=== PATIENT | male | born 1950 | race Caucasian/White ===

== ENCOUNTER 2019-03-15 08:55 | Day surgery (SDC) | payer OTHER ==
--- NOTE | 2019-03-10 13:09 | RAD REPORT ---
EXAM DESCRIPTION: RAD - Chest Pa And Lat (2 Views) - 03/10/2019 1:02 pm CLINICAL HISTORY: Preop chest, history of squamous cell carcinoma, patient pending surgical proce dure COMPARISON: None. TECHNIQUE: PA and lateral views of the chest were obtained. FINDINGS: The lungs are fibrotic. Diaphragm is flattened. No acute infiltrates seen. No failure or v olume overload. Heart size is normal and central vasculature is within normal limits. No pleural e ffusion or pneumothorax seen. No acute bony finding noted. No aortic abnormality. IMPRESSION: Fibrotic and obstructive lung pattern with no acute cardiopulmonary finding seen.
[2019-03-10 13:35] LABS: Urine Appearance CLOUDY; Urine Bilirubin NEGATIVE (NEG); Urine Blood NEGATIVE (NEG); Urine Color YELLOW; Urine Glucose NEGATIVE (NEG); Urine Protein NEGATIVE (NEG); Urine Specific Gravity 1.015 (1.005-1.030); Urine Urobilinogen 0.2 mg/dL (0.2-1.0); Urine pH 7.5 (5.0-7.0)
[2019-03-10 13:40] LABS: Protime INR 1.31
[2019-03-10 13:46] LABS: BUN Blood Urea Nitrogen 27 mg/dL (7-18); Bicarbonate 35 mmol/L (21-32); Glucose Level 98 mg/dL (74-106); Potassium 4.4 mmol/L (3.5-5.1); Sodium Level 140 mmol/L (136-145)
[2019-03-10 13:54] LABS: Urine Microscopic Reflex ORDER UMIC
[2019-03-10 13:56] LABS: Urine RBC NONE SEEN /HPF (NONE SEEN)
[2019-03-10 13:57] LABS: Absolute Lymphocytes (CBC) 0.5 K/uL (0.7-4.9); Absolute Monocytes 0.5 K/uL (0.1-1.3); Absolute Neutrophil 3.9 K/uL (1.8-8.0); Basophils % 0.7 % (0-1.3); Eosinophils % 1.8 % (0-4.4); Hematocrit 44.2 % (39.6-49.0); Lymphocytes % 9.4 % (15.3-44.8); MPV 9.4 fL (7.6-11.3); Monocytes % 10.2 % (3.3-12.3); RBC Red Blood Cell Count 4.93 M/uL (4.33-5.43)
[2019-03-10 13:57] LABS: Urine Amorphous Sediment 2+ /HPF (NONE SEEN); Urine Bacteria 20-50 /HPF (NONE SEEN); Urine Culture Reflex Order NOT NEEDED; Urine Yeast MANY (NONE SEEN)
--- NOTE | 2019-03-10 16:30 | EKG ---
Test Date: 2019-03-10 Test Time: 13:04:43 Force Adjustment Supervisor: GERALD MEASUREMENT RESULTS: Intervals: Rate: 70 AK: 266 QRSD: 124 QT: 418 QTc: 451 [place]: P: 36 AK: 266 QRS: -52 T: 37 INTERPRETIVE STATEMENTS: Sinus rhythm with 1st degree AV block Right bundle branch block Left anterior fascicular block Bifascicular block Abnormal ECG No previous ECG available for comparison Electronically Signed On 03-10-19 16:29:12 CDT by Mode Clarke
[2019-03-15] MEDS ORDERED: NA CHLORIDE 0.9% 1,000 ML ONE (09:14)
[2019-03-15] MEDS ORDERED: GENTAMICIN 80 MG/100 ML BAG 80 MG/100 ML BAG IV ONE (09:14)
--- OUTSIDE RECORDS SUMMARY | 2019-03-15 09:14 | XMS REPORT | Clinical Summary ---
:1950 Author Organization [facility] Address [address] [place] [address] Care Team Providers Name Role Phone Unavailable Primary Care Provider Unavailable Allergies No Known Allergies Medications Medication Sig Dispensed Refills Start Date End Date Status tamsulosin (FLOMAX) Take 0.4 mg by 0 Active 0.4 mg Cap 24 hr mouth every 12 capsule (twelve) hours. pantoprazole Take 20 mg by 0 Active (PROTONIX) 20 MG mouth daily. tablet sucralfate (CARAFATE) Take 500 mg by 0 Active 100 mg/mL suspension mouth nightly. atorvastatin (LIPITOR) Take 20 mg by 0 Active 20 MG tablet mouth nightly. aspirin 81 MG chewable Take 1 tablet 30 tablet 0 03/02/2019 Active tablet (81 mg total) by mouth daily. amoxicillin-clavulanat Take 1 tablet 14 tablet 0 03/01/2019 03/08/2019 e (AUGMENTIN) 875-125 by mouth 2 mg per tablet (two) times daily for 7 days. Active Problems Problem Noted Date Fever 02/27/2019 SOB (shortness of breath) 02/27/[address] on admission 02/27/2019 History of placement of stent in LAD coronary artery 02/27/1995 BPH (benign prostatic hyperplasia) CAD (coronary artery disease) Resolved Problems Problem Noted Date Resolved Date Other type of acute myocardial infarction 02/27/2019 02/27/2019 Encounters Date Type Specialty Care Team Description 02/27/2019 - Hospital Encounter Cardiology Jean-Claude Reeves Other type of acute myocardial infarction (HCC) (Primary Dx); 03/01/2019 MD Liban Fever in other diseases Addy Jessica MD 02/27/2019 Surgery Mark Bell L CATH & PCI 02/27/2019 Travel 02/27/2019 Hospital Encounter Mark Bell MD after 03/14/2018 Social History Tobacco Use Types Packs/Day Years Used Date Never Smoker Smokeless Tobacco: Never Used Sex Assigned at Date Recorded Not on file Job Start Date Occupation Industry Not on file Not on file Not on file Travel History Travel Start Travel End No recent travel history available. Last Filed Vital Signs Vital Sign Reading Time Taken Blood Pressure 94/51 03/01/2019 7:05 AM CDT Pulse 67 03/01/2019 9:56 AM CDT Temperature 36.3 C (97.4 F) 03/01/2019 7:05 AM CDT Respiratory Rate 18 03/01/2019 9:56 AM CDT Oxygen Saturation 96% 03/01/2019 9:56 AM CDT Inhaled Oxygen Concentration - - Weight 70 kg (154 lb 4.8 oz) 03/01/2019 6:07 AM CDT Height 180.3 cm (5' 11") 02/27/2019 6:22 PM CDT Body Mass Index 21.52 03/01/2019 6:07 AM CDT Plan of Treatment Not on file Procedures Procedure Name Priority Date/Time Associated Comments Diagnosis VASCULAR DIAGRAM -SCAN 03/03/2019 4:22 PM CDT REPORT OF PROCEDURE - 03/02/2019 12:42 ENDOSCOPY SCAN PM CDT CARDIAC CATH REPORT - 03/02/2019 12:42 SCAN PM CDT RHYTHM STRIP - SCAN 03/02/2019 12:42 PM CDT VASCULAR DIAGRAM -SCAN 03/02/2019 12:41 PM CDT ECHOCARDIOGRAM REPORT - 02/28/2019 9:13 SCAN PM CDT POCT-GLUCOSE METER Routine 02/28/2019 12:12 Results for this PM CDT procedure are in the results section. 2D ECHO W/ DOPPLER Routine 02/28/2019 11:00 Results for this (CW/PW/COLOR) AM CDT procedure are in the results section. SPUTUM CULTURE + GRAM Routine 02/28/2019 9:10 Results for this STAIN AM CDT procedure are in the results section. RESPIRATORY PANEL [facility] Routine 02/28/2019 9:10 Results for this AM CDT procedure are in the results section. CBC W/PLT COUNT & AUTO Routine 02/28/2019 4:13 Results for this DIFFERENTIAL AM CDT procedure are in the results section. TROPONIN I Routine 02/28/2019 4:13 Results for this AM CDT procedure are in the results section. B-TYPE NATRIURETIC Routine 02/28/2019 4:13 Results for this FACTOR (BNP) AM CDT procedure are in the results section. TSH/FREE T4 IF Routine 02/28/2019 4:13 Results for this INDICATED AM CDT procedure are in the results section. HEMOGLOBIN A1C Routine 02/28/2019 4:13 Results for this AM CDT procedure are in the results section. LIPID PANEL Routine 02/28/2019 4:13 Results for this AM CDT procedure are in the results section. MAGNESIUM Routine 02/28/2019 4:13 Results for this AM CDT procedure are in the results section. BASIC METABOLIC PANEL Routine 02/28/2019 4:13 Results for this (7) AM CDT procedure are in the results section. CBC W/PLT COUNT & AUTO Routine 02/28/2019 4:13 Results for this DIFFERENTIAL AM CDT procedure are in the results section. URINALYSIS W/ REFLEX Routine 02/27/2019 10:00 Results for this URINE CULTURE PM CDT procedure are in the results section. URINE CULTURE Routine 02/27/2019 10:00 Results for this PM CDT procedure are in the results section. XR CHEST 1 VIEW STAT 02/27/2019 7:28 Results for this PORTABLE/BEDSIDE PM CDT procedure are in the results section. CBC W/PLT COUNT & AUTO STAT 02/27/2019 5:11 Results for this DIFFERENTIAL PM CDT procedure are in the results section. TROPONIN I STAT 02/27/2019 5:11 Results for this PM CDT procedure are in the results section. PROTHROMBIN TIME/INR STAT 02/27/2019 5:11 Results for this PM CDT procedure are in the results section. CBC W/PLT COUNT & AUTO STAT 02/27/2019 5:11 Results for this DIFFERENTIAL PM CDT procedure are in the results section. BASIC METABOLIC PANEL STAT 02/27/2019 5:11 Results for this (7) PM CDT procedure are in the results section. (CELLAVISION MANUAL Routine 02/27/2019 5:11 Results for this DIFF) PM CDT procedure are in the results section. L CATH & PCI 02/27/2019 4:00 Chest pain, PM CDT unspecified type after 03/14/2018 Results VASCULAR DIAGRAM -SCAN (03/03/2019 4:22 PM CDT)Only the most recent of2 resultswithin the time period is included. Narrative Performed At EKG-SCANNED (03/02/2019 12:42 PM CDT) Narrative Performed At CARDIAC CATH REPORT - SCAN (03/02/2019 12:42 PM CDT) Narrative Performed At RHYTHM STRIP - SCAN (03/02/2019 12:42 PM CDT) Narrative Performed At ECHOCARDIOGRAM REPORT - SCAN (02/28/2019 9:13 PM CDT) Narrative Performed At POC-Glucose meter (02/28/2019 12:12 PM CDT) POC-Glucose Meter 105Comment: TESTED AT 70 - 110 mg/dL [address] [address] Specimen Blood Performing Organization Address City/State/Zipcode Phone Number [address] [phone] CENTER Transthoracic 2D echo w/ doppler (cw/pw/color) (02/28/2019 11:00 AM CDT) Ejection Fraction [facility] [employer] TechnologyON [facility] Specimen Narrative Performed At Transthoracic Echocardiography Report (TTE) [facility]ART[facility] InCab DesignESSON [facility] Demographics Patient Name SAQIB BOLTON Date of Study 02/28/2019 [id number] GenderMale Visit Number [id number] Unknown [id number] Room Number 6101 Number Date of Birth1950Referring Physician Age68 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 Clinical History Coronary Artery Disease Cancer S/P LAD Stent HGB 12.3 HCT 37.8 % Contrast Medium: Definity. Amount - 2 ml Height: 71 inches Weight: 72.12 kg (159 lbs) BSA: 1.91 m^2 BMI: 22.18 kg/m^2 HR: 68 bpm BP: 90/58 mmHg Summary The LV endocardium is well visualized. The left ventricle is chamber size (by PSLAX dimension) is normal (male - LVIDd 4.2-5.8cm) . No evidence of LV hypertrophy. All of the LV segments contract normally . LVEF by John's method of disk assessment is normal (60%) . Normal diastolic function. Estimated peak systolic PA pressure is cannot be determined due to inadequate TR velocity signal . A trivial pericardial effusion is present anterior to RV . Previous Study No prior studies available for comparison. Signature Findings Left Ventricle The LV endocardium is well visualized. Th e left ventricle is chamber size (by PSLAX di mension) is normal (male - LVIDd 4.2-5.8cm) . No evidence of LV hypertrophy. Al l of the LV segments contract normally . LV EF by John's method of disk assessment is no rmal (60%) . No rmal diastolic function. Left AtriumLA size is normal (16-34 ml/m2) . Right VentricleThe right ventricular chamber size and systolic fu nction are within normal limits. Right Atrium RA size is normal. Aortic Valve Normal AoV structure. No evidence of aortic regurgitation. Mitral Valve Mild MV leaflet thickening. No significant mitral regurgitation. Tricuspid ValveA trace of tricuspid regurgitation. Es timated peak systolic PA pressure is cannot be de termined due to inadequate TR velocity signal . Pulmonic Valve Normal PV structure and function by limited views an d Doppler. AortaAortic root size (SInus of Valsalva diameter) is no rmal . PericardiumA trivial pericardial effusion is present anterior to RV . IVC/SVC/PA/PV/PleuralThe estimated RA pressure by IVC dynamics 5-10mmHg . Chambers/Structures Left Atrium LA Volume: 58.62 ml LA Area: 21.31 cm^2 LA Vol. Index: 31 ml/m^2 Left Ventricle LVIDd: 4.55 cm LVIDs: 2.38 cm LV Septum Diastolic: 0.78 cm LV PW Diastolic: 0.92 cmLV FS: 47.7 % LVEDV John's:125.78 ml LVESV John's:53.83 mlLVEDVI: 66 ml/m^2 LVEF John's: 57.2 %LVESV I: 28 ml/m^2 LVOT Diameter: 1.96 cm Right Atrium RA Vol. (Sngl Plane): 44.25 ml Aorta Ao Root S of Rebecca.: 3.19 cm Doppler/Quantitative Measurements Mitral Valve MV Peak E-Wave: 0.55 m/sMV Peak A-Wave: 0.49 m/s E/A Ratio: 1.14 Peak Gradient: 1.22 mmHg Deceleration Time: 240.3 msec MV Jose. Peak: Tissue Doppler E' Lateral Velocity: 0.09 m/s E/E': 6.19 Aortic Valve Peak Velocity: 1.27 m/sMean Velocity: 0.96 m/s Peak Gradient: 6.42 mmHg Mean Gradient: 3.97 mmHg AV Area (continuity): 2.14 cm^2 AV VTI: 29.01 cm AV DVI: 0.71 LVOT Peak Velocity: 0.99 m/s Peak Gradient: 3.96 mmHg Mean Velocity: 0.71 m/s Mean Gradient: 2.2 mmHg LVOT Diameter: 1.96 cmLVOT VTI: 20.61 cm LVOT Area: 3.02 cm^2LVOT SV:62.15 ml LVOT CO: 4.23 l/min LVOT CI: 2.21 l/min/m^2 Procedure Note Interface, External Ris In - 02/28/2019 4:00 PM CDT Transthoracic Echocardiography Report (TTE) Demographics Patient Name SAQIB BOLTON Date of Study 02/28/2019 Gender Male Visit Number [id number] Race Unknown Room Number 6101 Number Date of 1950 Referring Physician Age 68 year(s) 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 Clinical History Coronary Artery Disease Cancer S/P LAD Stent HGB 12.3 HCT 37.8 % Contrast Medium: Definity. Amount - 2 ml Height: 71 inches Weight: 72.12 kg (159 lbs) BSA: 1.91 m^2 BMI: 22.18 kg/m^2 HR: 68 bpm BP: 90/58 mmHg Summary The LV endocardium is well visualized. The left ventricle is chamber size (by PSLAX dimension) is normal (male - LVIDd 4.2-5.8cm) . No evidence of LV hypertrophy. All of the LV segments contract normally . LVEF by John's method of disk assessment is normal (60%) . Normal diastolic function. Estimated peak systolic PA pressure is cannot be determined due to inadequate TR velocity signal . A trivial pericardial effusion is present anterior to RV . Previous Study No prior studies available for comparison. Signature Findings Left Ventricle The LV endocardium is well visualized. The left ventricle is chamber size (by PSLAX dimension) is normal (male - LVIDd 4.2-5.8cm) . No evidence of LV hypertrophy. All of the LV segments contract normally . LVEF by John's method of disk assessment is normal (60%) . Normal diastolic function. Left Atrium LA size is normal (16-34 ml/m2) . Right Ventricle The right ventricular chamber size and systolic function are within normal limits. Right Atrium RA size is normal. Aortic Valve Normal AoV structure. No evidence of aortic regurgitation. Mitral Valve Mild MV leaflet thickening. No significant mitral regurgitation. Tricuspid Valve A trace of tricuspid regurgitation. Estimated peak systolic PA pressure is cannot be determined due to inadequate TR velocity signal . Pulmonic Valve Normal PV structure and function by limited views and Doppler. Aorta Aortic root size (SInus of Valsalva diameter) is normal . Pericardium A trivial pericardial effusion is present anterior to RV . IVC/SVC/PA/PV/Pleural The estimated RA pressure by IVC dynamics 5-10mmHg . Chambers/Structures Left Atrium LA Volume: 58.62 ml LA Area: 21.31 cm^2 LA Vol. Index: 31 ml/m^2 Left Ventricle LVIDd: 4.55 cm LVIDs: 2.38 cm LV Septum Diastolic: 0.78 cm LV PW Diastolic: 0.92 cm LV FS: 47.7 % LVEDV John's:125.78 ml LVESV John's:53.83 ml LVEDVI: 66 ml/m^2 LVEF John's: 57.2 % LVESVI: 28 ml/m^2 LVOT Diameter: 1.96 cm Right Atrium RA Vol. (Sngl Plane): 44.25 ml Aorta Ao Root S of Rebecca.: 3.19 cm Doppler/Quantitative Measurements Mitral Valve MV Peak E-Wave: 0.55 m/s MV Peak A-Wave: 0.49 m/s E/A Ratio: 1.14 Peak Gradient: 1.22 mmHg Deceleration Time: 240.3 msec MV Jose. Peak: Tissue Doppler E' Lateral Velocity: 0.09 m/s E/E': 6.19 Aortic Valve Peak Velocity: 1.27 m/s Mean Velocity: 0.96 m/s Peak Gradient: 6.42 mmHg Mean Gradient: 3.97 mmHg AV Area (continuity): 2.14 cm^2 AV VTI: 29.01 cm AV DVI: 0.71 LVOT Peak Velocity: 0.99 m/s Peak Gradient: 3.96 mmHg Mean Velocity: 0.71 m/s Mean Gradient: 2.2 mmHg LVOT Diameter: 1.96 cm LVOT VTI: 20.61 cm LVOT Area: 3.02 cm^2 LVOT SV:62.15 ml LVOT CO: 4.23 l/min LVOT CI: 2.21 l/min/m^2 Performing Organization Address City/State/Zipcode Phone Number [facility]ART[facility] MKBRADLY CPACS RESPIRATORY PANEL [facility] (02/28/2019 9:10 AM CDT) Human Metapneumovirus Not detected Not detected, [facility] Rhinovirus Not detected Not detected, [facility] Influenza A Not detected Not detected, [facility] INFLUENZA A (NO SUBTYPE) Not detected, [facility] Equivocal [facility] Influenza A subtype H1 Not detected, [facility] Influenza A Subtype H3 Not detected, [facility] Influenza A Subtype H1-2009 Not detected, [facility] Influenza B Not detected Not detected, [facility] Respiratory Syncytial Virus Not detected Not detected, [facility] Parainfluenza Virus 1 Not detected Not detected, [facility] Parainfluenza Virus 2 Not detected Not detected, [facility] Parainfluenza virus 3 Not detected Not detected, [facility] Parainfluenza Virus 4 Not detected Not detected, [facility] Adenovirus Not detected Not detected, [facility] Coronavirus 229E Not detected Not detected, [facility] Coronavirus HKU1 Not detected Not detected, [facility] Coronavirus NL63 Not detected Not detected, [facility] Coronavirus OC43 Not detected Not detected, [facility] Bordetella Pertussis Not detected Not detected, [facility] Chlamydophila Pneumoniae Not detected Not detected, [facility] Mycoplasma Pneumoniae Not detected Not detected, [facility] Specimen Nasopharyngeal Narrative Performed At Other viruses and bacteria not targeted by [facility] this PCR panel cannot be excluded; therefore clinical correlation and follow up of serology, culture results, and other molecular studies is required. The results are not intended to be used as the sole means for clinical diagnosis or patient management decisions. This sample was tested at the [facility] Molecular Diagnostics Laboratory using the AppinionsArray Respiratory Panel. It is FDA cleared and has been verified and approved by the [facility] Molecular [facility]ostics [facility] for clinical use on nasal swab specimens. Performing Organization Address [facility] Cent[facility]ode Phone Number [address] [address] [place] Sputum Culture + Gram Stain (02/28/2019 9:10 AM CDT) Result Oropharyngeal contamination, [facility] specimen rejected. [facility] requested. Gram Stain Result 1+ WBCs [facility] Gram Stain Result >25 epithelial cells [facility] Gram Stain Result 4+ gram positive rods [facility] Gram Stain Result 3+ gram positive cocci in pairs [facility] Specimen Sputum - Expectorated Performing Organization Address [facility] Centercode Phone Number [address] [address] [place] TSH/Free T4 If Indicated (02/28/2019 4:13 AM CDT) TSH 0.49 0.35 - 4.94 uIU/mL [facility] Specimen Blood Performing Organization Address [facility] Centercode Phone Number [address] [address] [place] CBC with platelet count + automated diff (02/28/2019 4:13 AM CDT)Only the most recent of2 resultswithin the time period is included. WBC 9.9 3.5 - 10.5 K/L [facility] RBC 4.12 (L) 4.63 - 6.08 M/L [facility] Hemoglobin 12.3 (L) 13.7 - 17.5 GM/DL [facility] Hematocrit 37.8 (L) 40.1 - 51.0 % [facility] MCV 91.7 79.0 - 92.2 fL [facility] MCH 29.9 25.7 - 32.2 pg [facility] MCHC 32.5 32.3 - 36.5 GM/DL [facility] RDW 14.7 (H) 11.6 - 14.4 % [facility] Platelets 132 (L) 150 - 450 K/CU MM [facility] MPV 11.2 9.4 - 12.4 fL [facility] nRBC 0 0 - 0 /100 WBC [facility] % Neutros 81 % [facility] % Lymphs 6 % [facility] % Monos 11 % [facility] % Eos 1 % [facility] % Baso 0 % [facility] # Neutros 8.02 (H) 1.78 - 5.38 K/L [facility] # Lymphs 0.63 (L) 1.32 - 3.57 K/L [facility] # Monos 1.12 (H) 0.30 - 0.82 K/L [facility] # Eos 0.09 0.04 - 0.54 K/L [facility] # Baso 0.04 0.01 - 0.08 K/L [facility] Immature Granulocytes-Relative 0 0 - 1 % [facility] Specimen Blood Performing Organization Address City/State/Zipcode Phone Number [address] [address] CENTER Troponin I (02/28/2019 4:13 AM CDT)Only the most recent of2 resultswithin the time period is included. Troponin I 0.01 0.00 - 0.03 ng/mL [facility] Specimen Blood Narrative Performed At Troponin I (TnI) levels must be interpreted [facility] in the context of the presenting symptoms and the clinical findings. Elevated TnI levels indicate myocardial damage, but are not specific for ischemic heart disease. Elevated TnI levels are seen in patients with other cardiac conditions (including myocarditis and congestive heart failure), and slight TnI elevations occur in patients with other conditions, including sepsis, renal failure, acidosis, acute neurological disease, and persistent tachyarrhythmia. Performing Organization Address [facility] Centercode Phone Number [address] [address] CENTER B-type Natriuretic Factor (BNP) (02/28/2019 4:13 AM CDT) BNP 309 (H) 0 - 100 pg/mL [facility] Specimen Blood Performing Organization Address [facility] Centercodc Phone Number [address] [address] CENTER Magnesium (02/28/2019 4:13 AM CDT) Magnesium 2.1Comment: Specimen slightly 1.6 - 2.6 mg/dL [facility] hemolyzed [facility] Specimen Blood Performing Organization Address [facility] Centercode Phone Number [address] [address] CENTER Hemoglobin A1c (02/28/2019 4:13 AM CDT) Hemoglobin A1C 5.1 4.3 - 6.1 % [facility] Specimen Blood Performing Organization Address [facility] Centercode Phone Number [address] [address] [phone] [place] Lipid panel (02/28/2019 4:13 AM CDT) Triglycerides 53Comment: Specimen slightly mg/dL [facility] Cholesterol 76Comment: Specimen slightly mg/dL [facility] HDL 35 mg/dL [facility] LDL Calculated 30 mg/dL [facility] Specimen Blood Narrative Performed At Triglyceride Reference Range: [facility] Low Risk <150 [id number] High Risk 200-499 Very High Risk>=500 Cholesterol Reference Range: Low Risk <200 [id number] High Risk>240 HDL Cholesterol Reference Range: Low Risk >=60 High Risk <40 LDL Cholesterol Reference Range: Optimal<100 Near [id number] [id number] Very High >=190 Performing Organization Address City/State/Zipcode Phone Number [address] [phone] [place] Basic Metabolic Panel (02/28/2019 4:13 AM CDT)Only the most recent of2 resultswithin the time period is included. Sodium 138 136 - 145 meq/L [facility] Potassium 4.0Comment: Specimen slightly 3.5 - 5.1 meq/L [facility] Chloride 104 98 - 107 meq/L [facility] CO2 29 22 - 29 meq/L [facility] BUN 20 7 - 21 mg/dL [facility] Creatinine 0.61Comment: Specimen slightly 0.57 - 1.25 mg/dL [facility] Glucose 106 (H) 70 - 105 mg/dL [facility] Calcium 8.4 8.4 - 10.2 mg/dL [facility] EGFR Comment: INSUFFICIENT CLINICAL mL/min/1.73 sq m [facility] DATA TO CALCULATE ESTIMATED [facility] GFR. Specimen Blood Performing Organization Address City/[facility]/Zipcode Phone Number [facility] [address] [place] [address] [place] Urinalysis w/Microscopic + Reflex to Culture (02/27/2019 10:00 PM CDT) Color, UA [place] [facility] Clarity, UA Hazy [facility] Specific [place], UA 1.015 1.001 - 1.035 [facility] pH, UA 6.5 5.0 - 8.0 [facility] Protein, UA 10 mg/dL (A) Negative [facility] Glucose, UA Negative Negative [facility] Ketones, UA Negative Negative [facility] Bilirubin, UA Negative Negative [facility] Blood, UA Large (A) Negative [facility] Nitrite, UA Negative Negative [facility] Leukocytes, UA Large (A) Negative [facility] Urobilinogen, UA 0.2 0.2 - 1.0 mg/dL [facility] RBC, UA 1,527 /HPF [facility] WBC, UA 257 /HPF [facility] Bacteria, UA ModerateComment: This is [facility] an appended report. [facility] These results have been appended to a previously final verified report. Specimen Source [facility] Specimen Urine Performing Organization Address City/[facility]/Zipcode Phone Number [facility] [address] [place] [address] CENTER Urine culture (02/27/2019 10:00 PM CDT) Result KLEBSIELLA SPECIES (A) [facility] Result >100,000 col/mL Enterococcus [facility] species () [facility] Specimen Urine Organism Antibiotic Method Susceptibility Klebsiella species Amikacin <=2: Susceptible Klebsiella species Ampicillin + Sulbactam 4: Susceptible Klebsiella species Aztreonam <=1: Susceptible Klebsiella species Cefepime <=1: Susceptible Klebsiella species Cefoxitin <=4: Susceptible Klebsiella species Ceftazidime <=1: Susceptible Klebsiella species Ceftriaxone <=1: Susceptible Klebsiella species Ertapenem <=0.5: Susceptible Klebsiella species Gentamicin <=1: Susceptible Klebsiella species Levofloxacin <=0.12: Susceptible Klebsiella species Meropenem <=0.25: Susceptible Klebsiella species Nitrofurantoin 128: Resistant Klebsiella species Piperacillin + Tazobactam <=4: Susceptible Klebsiella species Tetracycline <=1: Susceptible Klebsiella species Tobramycin <=1: Susceptible Klebsiella species Trimethoprim + Sulfamethoxazole <=20: Susceptible Enterococcus species Ampicillin <=2: Susceptible Enterococcus species Linezolid 2: Susceptible Enterococcus species Tetracycline >=16: Resistant Enterococcus species Vancomycin 1: Susceptible Performing Organization Address City/State/Zipcode Phone Number [address] [address] CENTER XR chest 1 view portable / bedside (02/27/2019 7:28 PM CDT) Specimen Narrative Performed At FINAL REPORT GE RIS INDICATION: SOB COMPARISON: None TECHNIQUE: Single frontal view of the chest. FINDINGS: Lungs and pleura: Atelectasis within the right midlung. No effusion. Heart and mediastinum: Normal heart size. Unremarkable mediastinal contours. Osseous structures: No acute abnormality. Other: Prior right clavicular plate and screw repair. IMPRESSION: No acute intrathoracic abnormality. Signed: Ladi Salcido MD Report Verified Date/Time:02/27/2019 19:59:29 Reading Location: [facility] B1 C013V Neuro Reading Room Procedure Note Interface, External Ris In - 02/27/2019 8:01 PM CDT FINAL REPORT INDICATION: SOB COMPARISON: None TECHNIQUE: Single frontal view of the chest. FINDINGS: Lungs and pleura: Atelectasis within the right midlung. No effusion. Heart and mediastinum: Normal heart size. Unremarkable mediastinal contours. Osseous structures: No acute abnormality. Other: Prior right clavicular plate and screw repair. IMPRESSION: No acute intrathoracic abnormality. Signed: Ladi Salcido MD Report Verified Date/Time: 02/27/2019 19:59:29 Reading Location: [facility] C013V Neuro Reading Room Performing Organization Address City/State/Zipcode Phone Number GE RIS Prothrombin time/INR (02/27/2019 5:11 PM CDT) Protime 17.9 (H) 11.7 - 14.7 seconds [facility] INR 1.5 <=5.9 [facility] Specimen Blood Narrative Performed At RECOMMENDED COUMADIN/WARFARIN INR THERAPY [facility] RANGES STANDARD DOSE: 2.0 - 3.0 Includes: PROPHYLAXIS for venous thrombosis, systemic embolization; TREATMENT for venous thrombosis and/or pulmonary embolus. HIGH RISK: Target INR is 2.5-3.5 for patients with mechanical heart valves. Performing Organization Address City/[facility] Phone Number [address] [address] CENTER Manual Differential (02/27/2019 5:11 PM CDT) % Neutros 78 % [facility] % Lymphs 1 % [facility] % Monos 8 % [facility] % Metamyelo 1 (H) 0 - 0 % [facility] % Bands 11 (H) 0 - 10 % [facility] % Atypical Lymphs 1 (H) 0 - 0 % [facility] # Neutros 11.15 (H) 1.78 - 5.38 K/ul [facility] # Lymphs 0.14 (L) 1.32 - 3.57 K/ul [facility] # Monos 1.14 (H) 0.30 - 0.82 K/uL [facility] # Metamyelo 0.14 (H) 0.00 - 0.00 K/uL [facility] # Bands 1.57 (H) 0.00 - 0.80 K/uL [facility] # Atypical Lymphs 0.14 (H) 0.00 - 0.00 K/uL [facility] Total Counted 100 [facility] WBC Morphology Normal [facility] Giant Platelet Present [facility] Anisocytosis 1+ few [facility] Artifact Present [facility] Platelet Conc Adequate [facility] Specimen Blood Narrative Performed At Received comment: [facility] User comments: Slide comments: Performing Organization Address City/State/Zipcode Phone Number [facility] [address] [place] [address] CENTER after 03/14/2018 Insurance Payer Benefit Plan / Group Subscriber ID Type Phone Address MEDICARE MEDICARE A B xxxxxxxxxxx Medicare MCR SUPPLEMENT/[employer] [place] xxxxxxxx Medigap Advance Directives For more information, please contact:[address] [phone] Code Status Date Activated Date Inactivated Comments Full Code 02/27/2019 6:02 PM 03/01/2019 3:23 PM This code status was determined by: Patient
--- OUTSIDE RECORDS SUMMARY | 2019-03-15 09:15 | XMS REPORT ---
:1950 Author [facility] Address [address] [place] [address] Dr. Huitron [address] [place] [address] Care Team Providers Name Role Phone RAD STRONG Unavailable Unavailable Problems This patient has no known problems. Allergies, Adverse Reactions, Alerts This patient has no known allergies or adverse reactions. Medications This patient has no known medications. Results Test Description Test Time Test Comments Text Results Atomic Results Result Comments SPUTUM CULTURE + GRAM STAIN 2019-02-28 18:08:00 Test Item Value Reference Range Comments CULTURE (BEAKER) (test xkgf=6557) Oropharyngeal contamination, specimen rejected. Recollect requested. GRAM STAIN RESULT (BEAKER) (test 1+ WBCs fkof=0350) GRAM STAIN RESULT (BEAKER) (test >25 epithelial cells vmpd=43323) GRAM STAIN RESULT (BEAKER) (test 4+ gram positive rods pssu=79307) GRAM STAIN RESULT (BEAKER) (test 3+ gram positive cocci in pairs eeig=489877) POCT-GLUCOSE [id number] 12:14:00 Test Item Value Reference Range Comments POC-GLUCOSE METER (BEAKER) 105 mg/dL 70-110 TESTED AT [address] (test usnj=0073) [facility] [address] RESPIRATORY PANEL [id number] 11:36:00 Test Item Value Reference Range Comments HUMAN METAPNEUMOVIRUS (BEAKER) (test Not detected Not detected, Equivocal yjxl=7071) RHINOVIRUS (BEAKER) (test dozp=8407) Not detected Not detected, Equivocal INFLUENZA A (BEAKER) (test sqmu=7297) Not detected Not detected, Equivocal INFLUENZA A (NO SUBTYPE) (test Not detected, Equivocal lqpj=4667) INFLUENZA A SUBTYPE H1 (BEAKER) (test Not detected, Equivocal mhaj=4002) INFLUENZA A SUBTYPE H3 (BEAKER) (test Not detected, Equivocal vkia=1652) INFLUENZA A SUBTYPE H1-2009 (BEAKER) Not detected, Equivocal (test zpdz=0554) INFLUENZA B (BEAKER) (test ghkl=3521) Not detected Not detected, Equivocal RESPIRATORY SYNCYTIAL VIRUS (BEAKER) Not detected Not detected, Equivocal (test fmpm=0396) PARAINFLUENZA VIRUS 1 (BEAKER) (test Not detected Not detected, Equivocal ghon=3578) PARAINFLUENZA VIRUS 2 (BEAKER) (test Not detected Not detected, Equivocal ewqo=3205) PARAINFLUENZA VIRUS 3 (BEAKER) (test Not detected Not detected, Equivocal tznz=8723) PARAINFLUENZA VIRUS 4 (BEAKER) (test Not detected Not detected, Equivocal plkf=1929) ADENOVIRUS (BEAKER) (test liej=0069) Not detected Not detected, Equivocal CORONAVIRUS 229E (BEAKER) (test Not detected Not detected, Equivocal xwpt=3746) CORONAVIRUS HKU1 (BEAKER) (test Not detected Not detected, Equivocal vaha=0238) CORONAVIRUS NL63 (BEAKER) (test Not detected Not detected, Equivocal vlaf=9707) CORONAVIRUS OC43 (BEAKER) (test Not detected Not detected, Equivocal crsd=7940) BORDETELLA PERTUSSIS (BEAKER) (test Not detected Not detected, Equivocal kwjo=7983) CHLAMYDOPHILA PNEUMONIAE (BEAKER) (test Not detected Not detected, Equivocal xsew=5947) MYCOPLASMA PNEUMONIAE (BEAKER) (test Not detected Not detected, Equivocal ojrf=1239) Other viruses and bacteria not targeted by this PCR panel cannot be excluded; therefore clinical correlation and follow up of serology, culture results, and other molecular studies is required. The results are not intended to be used as the sole means for clinical diagnosis or patient management decisions. This sample was tested at the [facility] Molecular Diagnostics Laboratory using the CEYXArray Respiratory Panel. It is FDA cleared and has been verified and approved by the [facility] Molecular Diagnostics Laboratory for clinical use on nasal swab specimens.HEMOGLOBIN [id number] 09:34:00 Test Item Value Reference Range Comments HEMOGLOBIN A1C (BEAKER) (test fptj=241) 5.1 % 4.3-6.1 TSH/FREE T4 IF [id number] 06:37:00 Test Item Value Reference Range Comments THYROID STIMULATING HORMONE (BEAKER) (test 0.49 uIU/mL 0.35-4.94 lsxz=353) BASIC METABOLIC [id number] 05:27:00 Test Item Value Reference Range Comments SODIUM (BEAKER) (test 138 meq/L 136-145 fagg=046) POTASSIUM (BEAKER) (test 4.0 meq/L 3.5-5.1 Specimen slightly lhhy=705) hemolyzed CHLORIDE (BEAKER) (test 104 meq/L 98-107 ihew=902) CO2 (BEAKER) (test 29 meq/L 22-29 oknt=847) BLOOD UREA NITROGEN 20 mg/dL 7-21 (BEAKER) (test yqfc=041) CREATININE (BEAKER) (test 0.61 mg/dL 0.57-1.25 Specimen slightly tbft=441) hemolyzed GLUCOSE RANDOM (BEAKER) 106 mg/dL 70-105 (test ebfb=107) CALCIUM (BEAKER) (test 8.4 mg/dL 8.4-10.2 tqum=726) EGFR (BEAKER) (test mL/min/1.73 sq m INSUFFICIENT CLINICAL DATA miby=2816) TO CALCULATE ESTIMATED GFR. TROPONIN [id number] 05:10:00 Test Item Value Reference Range Comments TROPONIN I (BEAKER) (test rdol=114) 0.01 ng/mL 0.00-0.03 Troponin I (TnI) levels must be interpreted in the context of the presenting symptoms and the clinical findings. Elevated TnI levels indicate myocardial damage, but are not specific for ischemic heart disease. Elevated TnI levels are seen in patients with other cardiac conditions (including myocarditis and congestive heart failure), and slight TnI elevations occur in patients with other conditions, including sepsis, renal failure, acidosis, acute neurological disease, and persistent tachyarrhythmia.B-TYPE NATRIURETIC FACTOR (BNP) 05:10:00 Test Item Value Reference Range Comments B-TYPE NATRIURETIC PEPTIDE (BEAKER) (test 309 pg/mL 0-100 wdvo=405) [id number] 05:09:00 Test Item Value Reference Range Comments MAGNESIUM (BEAKER) (test 2.1 mg/dL 1.6-2.6 Specimen slightly hemolyzed hxjp=521) LIPID [id number] 05:09:00 Test Item Value Reference Range Comments TRIGLYCERIDES (BEAKER) (test 53 mg/dL Specimen slightly hemolyzed yxzs=247) CHOLESTEROL (BEAKER) (test 76 mg/dL Specimen slightly hemolyzed lsdm=376) HDL CHOLESTEROL (BEAKER) (test 35 mg/dL grqh=587) LDL CHOLESTEROL CALCULATED 30 mg/dL (BEAKER) (test jhcw=048) Triglyceride Reference Range: Low Risk <150 Borderline 150- 199 High Risk 200-499 Very High Risk >=500Cholesterol Reference Range: Low Risk <200 Borderline 200-239 High Risk > 240HDL Cholesterol Reference Range: Low Risk >=60 High Risk <40LDL Cholesterol Reference Range: Optimal <100 Near Optimal 100-129 Borderline 130-159 High 160-189 Very High >=190CBC W/PLT COUNT & AUTO [id number] 04:44:00 Test Item Value Reference Range Comments WHITE BLOOD CELL COUNT (BEAKER) (test bhdc=834) 9.9 K/ L 3.5-10.5 RED BLOOD CELL COUNT (BEAKER) (test ihqd=556) 4.12 M/ L 4.63-6.08 HEMOGLOBIN (BEAKER) (test rqve=054) 12.3 GM/DL 13.7-17.5 HEMATOCRIT (BEAKER) (test grpe=771) 37.8 % 40.1-51.0 MEAN CORPUSCULAR VOLUME (BEAKER) (test rasr=370) 91.7 fL 79.0-92.2 MEAN CORPUSCULAR HEMOGLOBIN (BEAKER) (test 29.9 pg 25.7-32.2 bevc=417) MEAN CORPUSCULAR HEMOGLOBIN CONC (BEAKER) (test 32.5 GM/DL 32.3-36.5 qgep=324) RED CELL DISTRIBUTION WIDTH (BEAKER) (test 14.7 % 11.6-14.4 qrfm=556) PLATELET COUNT (BEAKER) (test pqoo=789) 132 K/CU MM 150-450 MEAN PLATELET VOLUME (BEAKER) (test ehmp=766) 11.2 fL 9.4-12.4 NUCLEATED RED BLOOD CELLS (BEAKER) (test 0 /100 WBC 0-0 bgyy=323) NEUTROPHILS RELATIVE PERCENT (BEAKER) (test 81 % uvap=643) LYMPHOCYTES RELATIVE PERCENT (BEAKER) (test 6 % xnah=768) MONOCYTES RELATIVE PERCENT (BEAKER) (test 11 % njjd=255) EOSINOPHILS RELATIVE PERCENT (BEAKER) (test 1 % egic=678) BASOPHILS RELATIVE PERCENT (BEAKER) (test 0 % fpah=162) NEUTROPHILS ABSOLUTE COUNT (BEAKER) (test 8.02 K/ L 1.78-5.38 blwr=867) LYMPHOCYTES ABSOLUTE COUNT (BEAKER) (test 0.63 K/ L 1.32-3.57 prik=500) MONOCYTES ABSOLUTE COUNT (BEAKER) (test 1.12 K/ L 0.30-0.82 ketk=343) EOSINOPHILS ABSOLUTE COUNT (BEAKER) (test 0.09 K/ L 0.04-0.54 ezig=024) BASOPHILS ABSOLUTE COUNT (BEAKER) (test 0.04 K/ L 0.01-0.08 quyt=974) IMMATURE GRANULOCYTES-RELATIVE PERCENT (BEAKER) 0 % 0-1 (test kpuy=9627) URINALYSIS W/ REFLEX URINE [id number] 00:06:00 Test Item Value Reference Range Comments COLOR (BEAKER) (test kugl=666) Lytle CLARITY (BEAKER) (test Hazy ebap=305) SPECIFIC GRAVITY UA (BEAKER) 1.015 1.001-1.035 (test jmsm=555) PH UA (BEAKER) (test cegj=545) 6.5 5.0-8.0 PROTEIN UA (BEAKER) (test 10 mg/dL Negative jaen=518) GLUCOSE UA (BEAKER) (test Negative Negative giag=915) KETONES UA (BEAKER) (test Negative Negative seqi=757) BILIRUBIN UA (BEAKER) (test Negative Negative hxnh=145) BLOOD UA (BEAKER) (test Large Negative zmhk=707) NITRITE UA (BEAKER) (test Negative Negative pxua=515) LEUKOCYTE ESTERASE UA (BEAKER) Large Negative (test zmnz=952) UROBILINOGEN UA (BEAKER) (test 0.2 mg/dL 0.2-1.0 eqcr=050) RBC UA (BEAKER) (test htex=132) 1527 /HPF WBC UA (BEAKER) (test tvjf=668) 257 /HPF SOURCE(BEAKER) (test bsop=3457) BACTERIA (BEAKER) (test Moderate This is an appended report. mcve=466) These results have been appended to a previously final verified report. RAD, CHEST, 1 VIEW, NON [id number] 19:59:00Reason for exam:->SOBShould this be performed at the bedside?->YesFINAL REPORT INDICATION: SOB COMPARISON: None TECHNIQUE: Single frontal view of the chest. FINDINGS: Lungs and pleura: Atelectasis within the right midlung. No effusion.Heart andmediastinum: Normal heart size. Unremarkable mediastinal contours.Osseous structures: No acute abnormality.Other: Prior right clavicular plate and screw repair. IMPRESSION: No acute intrathoracic abnormality. Signed : Ann Salcido MDReport Verified Date/Time: 02/27/2019 19:59:29 Reading Location: [address] Neuro Reading Room 07:59 PM(CELLAVISION MANUAL DIFF)2019-02-27 18:08:00 Test Item Value Reference Range Comments NEUTROPHILS - REL (CELLAVISION)(BEAKER) (test 78 % wroc=7998) LYMPHOCYTES - REL (CELLAVISION)(BEAKER) (test 1 % avcm=0070) MONOCYTES - REL (CELLAVISION)(BEAKER) (test 8 % kero=2788) METAMYELOCYTES - REL (CELLAVISION)(BEAKER) (test 1 % 0-0 tgeh=5285) BANDS - REL (CELLAVISION)(BEAKER) (test 11 % 0-10 vtpm=7607) ATYPICAL LYMPHOCYTES - REL (CELLAVISION)(BEAKER) 1 % 0-0 (test qktb=8496) NEUTROPHILS - ABS (CELLAVISION)(BEAKER) (test 11.15 K/ul 1.78-5.38 luuq=8761) LYMPHOCYTES - ABS (CELLAVISION)(BEAKER) (test 0.14 K/ul 1.32-3.57 lujf=9088) MONOCYTES - ABS (CELLAVISION)(BEAKER) (test 1.14 K/uL 0.30-0.82 ijcu=6117) METAMYELOCYTES - ABS (CELLAVISION)(BEAKER) (test 0.14 K/uL 0.00-0.00 kbxg=4810) BANDS - ABS (CELLAVISION)(BEAKER) (test 1.57 K/uL 0.00-0.80 dutu=8449) ATYPICAL LYMPHOCYTES - ABS (CELLAVISION)(BEAKER) 0.14 K/uL 0.00-0.00 (test guwv=3205) TOTAL COUNTED (BEAKER) (test uvku=7958) 100 WBC MORPHOLOGY (BEAKER) (test jgve=891) Normal GIANT PLATELETS (BEAKER) (test fcxi=163) Present ANISOCYTOSIS (BEAKER) (test llwv=147) 1+ few ARTIFACT (CELLAVISION)(BEAKER) (test bzjj=1742) Present PLATELET CONCENTRATION (CELLAVISION)(BEAKER) Adequate (test mrxl=4949) Received comment: User comments: Slide comments:TROPONIN [id number] 17:58:00 Test Item Value Reference Range Comments TROPONIN I (BEAKER) (test awwj=934) 0.02 ng/mL 0.00-0.03 Troponin I (TnI) levels must be interpreted in the context of the presenting symptoms and the clinical findings. Elevated TnI levels indicate myocardial damage, but are not specific for ischemic heart disease. Elevated TnI levels are seen in patients with other cardiac conditions (including myocarditis and congestive heart failure), and slight TnI elevations occur in patients with other conditions, including sepsis, renal failure, acidosis, acute neurological disease, and persistent tachyarrhythmia.BASIC METABOLIC [id number] 17:52:00 Test Item Value Reference Range Comments SODIUM (BEAKER) (test 135 meq/L 136-145 cnjw=864) POTASSIUM (BEAKER) (test 4.0 meq/L 3.5-5.1 jhbi=549) CHLORIDE (BEAKER) (test 99 meq/L 98-107 cfvl=468) CO2 (BEAKER) (test 29 meq/L 22-29 sdje=138) BLOOD UREA NITROGEN 25 mg/dL 7-21 (BEAKER) (test fpgh=394) CREATININE (BEAKER) (test 0.68 mg/dL 0.57-1.25 hhuv=892) GLUCOSE RANDOM (BEAKER) 120 mg/dL 70-105 (test xcwd=428) CALCIUM (BEAKER) (test 8.6 mg/dL 8.4-10.2 izss=355) EGFR (BEAKER) (test mL/min/1.73 sq m INSUFFICIENT CLINICAL DATA tzua=0189) TO CALCULATE ESTIMATED GFR. PROTHROMBIN TIME/[id number] 17:43:00 Test Item Value Reference Range Comments PROTIME (BEAKER) (test dxtc=533) 17.9 seconds 11.7-14.7 INR (BEAKER) (test gjxy=106) 1.5 <=5.9 RECOMMENDED COUMADIN/WARFARIN INR THERAPY RANGESSTANDARD DOSE: 2.0 - 3.0 Includes: PROPHYLAXIS forvenous thrombosis, systemic embolization; TREATMENT for venous thrombosis and/or pulmonary embolus.HIGH RISK: Target INR is 2.5-3.5 for patients with mechanical heart valves.CBC W/PLT COUNT & AUTO [id number] 17:37:00 Test Item Value Reference Range Comments WHITE BLOOD CELL COUNT (BEAKER) (test avui=382) 14.3 K/ L 3.5-10.5 RED BLOOD CELL COUNT (BEAKER) (test oobb=311) 4.59 M/ L 4.63-6.08 HEMOGLOBIN (BEAKER) (test zngb=881) 13.4 GM/DL 13.7-17.5 HEMATOCRIT (BEAKER) (test cnom=306) 41.8 % 40.1-51.0 MEAN CORPUSCULAR VOLUME (BEAKER) (test zryf=996) 91.1 fL 79.0-92.2 MEAN CORPUSCULAR HEMOGLOBIN (BEAKER) (test 29.2 pg 25.7-32.2 jgpi=822) MEAN CORPUSCULAR HEMOGLOBIN CONC (BEAKER) (test 32.1 GM/DL 32.3-36.5 oyhe=715) RED CELL DISTRIBUTION WIDTH (BEAKER) (test 14.9 % 11.6-14.4 dfqz=317) PLATELET COUNT (BEAKER) (test tpcq=319) 145 K/CU MM 150-450 MEAN PLATELET VOLUME (BEAKER) (test zhxt=322) 10.9 fL 9.4-12.4 NUCLEATED RED BLOOD CELLS (BEAKER) (test 0 /100 WBC 0-0 wpml=133) NEUTROPHILS RELATIVE PERCENT (BEAKER) (test 86 % pulx=856) LYMPHOCYTES RELATIVE PERCENT (BEAKER) (test 1 % qwgd=952) MONOCYTES RELATIVE PERCENT (BEAKER) (test 12 % kfid=489) EOSINOPHILS RELATIVE PERCENT (BEAKER) (test 0 % zbse=205) BASOPHILS RELATIVE PERCENT (BEAKER) (test 0 % fjqo=869) NEUTROPHILS ABSOLUTE COUNT (BEAKER) (test 12.33 K/ L 1.78-5.38 kiou=264) LYMPHOCYTES ABSOLUTE COUNT (BEAKER) (test 0.19 K/ L 1.32-3.57 lgwt=224) MONOCYTES ABSOLUTE COUNT (BEAKER) (test 1.70 K/ L 0.30-0.82 vbhq=118) EOSINOPHILS ABSOLUTE COUNT (BEAKER) (test 0.00 K/ L 0.04-0.54 zcrn=953) BASOPHILS ABSOLUTE COUNT (BEAKER) (test 0.03 K/ L 0.01-0.08 vnuo=889) IMMATURE GRANULOCYTES-RELATIVE PERCENT (BEAKER) 1 % 0-1 (test rain=3116)
--- OUTSIDE RECORDS SUMMARY | 2019-03-15 09:15 | XMS REPORT | Continuity of Care Document ---
:1950 Author Organization [facility] Address [address] [place] [address] Phone Unavailable Care Team Providers Name Role Phone YUAN CORDERO MD Primary Care Physician Insurance Providers Guarantor Miky Bolton Address [address] [place] [address] Email [email or web address] [email or web address] Medicare Policy Number [id number] Subscriber's Name Miky Bolton Relationship Self / Same As Patient Group Number NA Group Name NA Effective Date 15 Payer [facility] Claims Policy Number [id number] Subscriber's Name Miky Bolton Alexander Relationship Self / Same As Patient Group Number PLAN G Group Name NA Advance Directives Directive Response Recorded Date/Time Patient/Family Given Education Material R/T Directives? 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 Surgical Problem Onset Date Status History of foot surgery Unknown Resolved Knee joint replacement by other means Unknown Resolved Status post insertion of percutaneous endoscopic gastrostomy Unknown (PEG) tube Past Problems Medical Problem Onset Date Status Aspiration pneumonia of right lung Unknown Acute Dyspnea Unknown Acute Gastrostomy tube obstruction Unknown Acute Hypoxemia Unknown Acute Pneumonia Unknown Acute Medications Current Home Medications Medication Dose Units Route Directions Days Qty Instructions Start Date Albuterol 1 Puff RESPIRATORY Rt-Every 4 (Ventolin Hfa (INHALATION) Hours As 90 Mcg/Act *) Needed 17 Gm Aers Aspirin 81 Mg INTRAGASTRIC Daily (Aspirin *) 81 Mg Chw Azithromycin 250 Mg ORAL Daily (Zithromax *) 250 Mg Tab Nutritional 4 Can INTRAGASTRIC Twice A Day Supplements (Glucerna 1.5 Calixto) 1.5 Calixto Liq Omeprazole 1 Cap ORAL Twice A Day 30 Cap (Omeprazole 20 Mg *) 20 Mg Cap Sucralfate 500 Mg INTRAGASTRIC Daily (Carafate *) 1 Gm/10 Ml Susp Tamsulosin Hcl 1 Cap ORAL Twice A Day 30 Cap (Tamsulosin Hcl 0.4 Mg (Flomax) *) 0.4 Mg Cap Past Home Medications Medication Directions Ordered Status Aspirin (Aspirin *) 81 Mg Tab, 1 Tab Oral Daily Discontinued Atorvastatin Calcium (Lipitor 20 Mg*) 20 Mg Tab, Daily Discontinued 0.5 Tab Intragastric Atorvastatin Calcium * 80 Mg Tab, 40 Mg Oral Once Daily Discontinued Levofloxacin (Levaquin 500 Mg*) 500 Mg Tab, 1 Tab Daily 09/19/16 Discontinued Oral Metoprolol Succinate (Toprol Xl *) 25 Mg Tab, 25 Daily Discontinued Mg Oral Metoprolol Succinate (Toprol Xl *) 50 Mg Tab, 0.5 Daily Discontinued Tab Oral Metronidazole (Flagyl 500 Mg*) 500 Mg Tab, 500 Mg Every 8 Hours 09/19/16 Discontinued Oral Tamsulosin Hcl (Tamsulosin Hcl 0.4 Mg (Flomax) *) Daily Discontinued 0.4 Mg Cap, 2 Cap Oral Social History Social History Problem Response Recorded Date/Time Onset Date Status Hx Alcohol Use No 06/16/2018 12:24pm Not Applicable Not Applicable Hx Physical Abuse No 06/16/2018 12:24pm Not Applicable Not Applicable Smoking Status Start Date Stop Date Never smoker Hospital Discharge Instructions Current inpatient/outpatient. Discharge instructions are currently unavailable. Plan of Care Current inpatient/outpatient. The plan of care is currently unavailable. Functional Status No functional status information available. Allergies, Adverse Reactions, Alerts Allergen Type Severity Reaction Status Last Updated No Known Allergies Allergy Severe Active 09/18/16 Immunizations No immunization information available. Vital Signs No vital sign information available. Results No relevant diagnostic test, laboratory data and/or discharge summary information available. Procedures Procedure Status Date Provider(s) CINE/VID X-RAY THROAT/ESOPH Completed 07/29/18 MOTION FLUOROSCOPY/SWALLOW Completed 07/29/18 SWALLOW CURRENT STATUS Completed 07/29/18 SWALLOW GOAL STATUS Completed 07/29/18 SWALLOW D/C STATUS Completed 07/29/18 Video fluoroscopy of esophagus and hypopharynx Completed 07/29/18 DEVIN OBRIEN MD during swallowing with oral liquid and paste contrast Encounters Encounter Location Arrival/Admit Date Discharge/Depart Date Attending Provider Registered [place] 09/20/18 8:42am YUAN CORDERO MD [facility] Discharged [place] 08/25/18 11:00am 09/17/18 11:59pm YUAN CORDERO MD Medical [facility] Registered [place] 07/29/18 11:59am DEVIN OBRIEN [facility]
--- OUTSIDE RECORDS SUMMARY | 2019-03-15 09:15 | XMS REPORT | CCD ---
:1950 Author Organization [facility] Care Team Providers Name Role Phone Ronnie Cevallos Jr Consulting Provider Allergies, Adverse Reactions, Alerts Substance Reaction Status NKDA Active Vital Signs Most recent to oldest [Reference Range]: 1 Height 177.8 cm (08/31/2013 11:56:00) Weight 79.545 kg (08/31/2013 11:56:00) Results CHEMISTRY Most recent to oldest [Reference Range]: 1 Sodium Lvl [135-145 mEq/L] 144 mEq/L (08/31/2013 11:10:00) Potassium Lvl [3.5-5.1 mEq/L] 4.0 mEq/L (08/31/2013 11:10:00) Chloride Lvl [95-109 mEq/L] 103 mEq/L (08/31/2013 11:10:00) CO2 [24-32 mEq/L] 32 mEq/L (08/31/2013 11:10:00) AGAP [10.0-20.0 mEq/L] 13.0 mEq/L (08/31/2013 11:10:00) Creatinine Lvl [0.5-1.4 mg/dL] 0.8 mg/dL (08/31/2013 11:10:00) eGFR 95 mL/min/1.73m2 1 *NA* (08/31/2013 11:10:00) BUN [7-22 mg/dL] 12 mg/dL (08/31/2013 11:10:00) Glucose Lvl [70-99 mg/dL] 136 mg/dL 2 *HI* (08/31/2013 11:10:00) Calcium Lvl [8.5-10.5 mg/dL] 9.0 mg/dL (08/31/2013 11:10:00) 1Result Comment: The eGFR is calculated using the CKD-EPI formula. In most young , healthy individualsthe eGFR will be >90 mL/min/1.73m2. The eGFR declines with age. An eGFR of 60-89 may be normal in some populations, particularly the elderly, for whom the CKD-EPI formula has not been extensively validated. Use of the eGFR is not recommended in the following populations: Individuals with unstable creatinine concentrations, including patients and those with serious co-morbid conditions. Patients with extremes in muscle mass or diet. The data above are obtained from the National Kidney Disease Education Program ( NKDEP) which additionally recommends that when the eGFR is used in patients with extremes of body mass index for purposesof drug dosing, the eGFR should be multiplied by the estimated BMI.2Interpretive Data: Adult reference range values reflect the clinical guidelines of the [place] [employer].HEMATOLOGY Most recent to oldest [Reference Range]: 1 WBC [3.7-10.4 K/CMM] 6.0 K/CMM (08/31/2013:) RBC [4.70-6.10 M/CMM] 5.10 M/CMM (08/31/201300) Hgb [14.0-18.0 g/dL] 14.4 g/dL (08/31/201300) Hct [42.0-54.0 %] 43.1 % (08/31/201300) MCV [80.0-94.0 fL] 84.5 fL (08/31/2013:00) MCH [27.0-31.0 pg] 28.2 pg (08/31/2013) MCHC [32.0-36.0 g/dL] 33.4 g/dL (08/31/201300) RDW [11.5-14.5 %] 14.2 % (08/31/201300) Platelet [133-450 K/CMM] 283 K/CMM (08/31/201300) MPV [7.4-10.4 fL] 7.5 fL (08/31/201300) Segs [45.0-75.0 %] 74.4 % (08/31/2013 11:10:00) Lymphocytes [20.0-40.0 %] 11.1 % *LOW* (08/31/2013 11:10:00) Monocytes [2.0-12.0 %] 11.5 % (08/31/2013 11:10:00) Eosinophils [0.0-4.0 %] 2.8 % (08/31/2013 11:10:00) Basophils [0.0-1.0 %] 0.2 % (08/31/2013 11:10:00) Segs-Bands # [1.5-8.1 K/CMM] 4.4 K/CMM (08/31/2013 11:10:00) Lymphocytes # [1.0-5.5 K/CMM] 0.7 K/CMM *LOW* (08/31/2013 11:10:00) Monocytes # [0.0-0.8 K/CMM] 0.7 K/CMM (08/31/2013 11:10:00) Eosinophils # [0.0-0.5 K/CMM] 0.2 K/CMM (08/31/2013 11:10:00) Basophils # [0.0-0.2 K/CMM] 0.0 K/CMM (08/31/2013 11:10:00)
--- OUTSIDE RECORDS SUMMARY | 2019-03-15 09:15 | XMS REPORT | Continuity of Care Document ---
:1950 Author Organization Interface Problems Problem Status Onset Classification Date Comments Source Date Reported 810.00, Active The V72.82 [place] Medications Medication Details Route Status Patient Ordering Order Source Instructions Provider Date Allergies, Adverse Reactions, Alerts Substance Category Reaction Severity Reaction Status Date Comments Source type Reported Immunizations Immunization Date Given Site Status Last Updated Comments Source Results Order Name Results Value Reference Date Interpretation Comments Source Range CHEMISTRY eGFR 95 08/31 1Result Comment: The eGFR is calculated using the CKD-EPI formula. In most young, healthy individuals the eGFR will be >90 mL/ min/1.73m2. The eGFR declines with age. An eGFR of 60-89 may be normal in The mL/min/1.7 some populations, particularly the elderly, for whom the CKD-EPI formula has not been extensively validated. Use of the eGFR is not recommended in the following populations: [place] 3m2 Individuals with unstable creatinine concentrations, including patients and those with serious co-morbid conditions. Patients with extremes in muscle mass or diet. The data above are obtained from the National Kidney Disease Education Program (NKDEP) which additionally recommends that when the eGFR is used in patients with extremes of body mass index for purposes of drug dosing, the eGFR should be multiplied by the estimated BMI. CHEMISTRY Chloride Lvl 103 meq/L 95 - 109 08/31 Normal [place] CHEMISTRY Potassium 4.0 meq/L 3.5 - 5.1 08/31 Normal The Lv [place] CHEMISTRY CO2 32 meq/L 24 - 32 08/31 Normal [place] CHEMISTRY Calcium Lvl 9.0 mg/dL 8.5 - 10.5 08/31 Normal [place] CHEMISTRY BUN 12 mg/dL 7 - 22 08/31 Normal The [place] CHEMISTRY Glucose Lvl 136 mg/dL 70 - 99 08/31 [place] 2Interpretive Data: Adult reference range values reflect the clinical guidelines of the [place] Diabetes [employer]. [place] CHEMISTRY Creatinine 0.8 mg/dL 0.5 - 1.4 Normal MH The Lvl /2012 [place] CHEMISTRY Sodium Lvl 144 meq/L 135 - 145 11 Normal MH The [place] CHEMISTRY AGAP 13.0 meq/L 10.0 - 11 Normal MH The 20.0 [place] HEMATOLOGY Eosinophils 2.8 % 0.0 - 4.0 11 Normal MH The [place] HEMATOLOGY Lymphocytes 11.1 % 20.0 - 11 LOW MH The 40.0 /2012 [place] HEMATOLOGY Segs 74.4 % 45.0 - 11 Normal MH The 75.0 [place] HEMATOLOGY Segs-Bands # 4.4 K/CMM 1.5 - 8.1 11 Normal MH The [place] HEMATOLOGY Basophils 0.2 % 0.0 - 1.0 11 Normal MH The [place] HEMATOLOGY Monocytes 11.5 % 2.0 - 12.0 08/31 Normal MH The [place] HEMATOLOGY Lymphocytes 0.7 K/CMM 1.0 - 5.5 11 LOW MH The # [place] HEMATOLOGY Monocytes # 0.7 K/CMM 0.0 - 0.8 11 Normal MH The [place] HEMATOLOGY Eosinophils 0.2 K/CMM 0.0 - 0.5 11 Normal MH The # [place] HEMATOLOGY Basophils # 0.0 K/CMM 0.0 - 0.2 11 Normal MH The [place] HEMATOLOGY Hct 43.1 % 42.0 - 08/31 Normal The 54.0 [place] HEMATOLOGY MCV 84.5 fL 80.0 - 08/31 Normal MH The 94.0 [place] HEMATOLOGY MCH 28.2 pg 27.0 - 11 Normal MH The 31.0 [place] HEMATOLOGY MCHC 33.4 g/dL 32.0 - 11 Normal MH The 36.0 [place] HEMATOLOGY MPV 7.5 fL 7.4 - 10.4 11 Normal MH The [place] HEMATOLOGY RDW 14.2 % 11.5 - 08/31 Normal MH The 14.5 [place] HEMATOLOGY Platelet 283 K/CMM 133 - 450 11 Normal MH The [place] HEMATOLOGY Hgb 14.4 g/dL 14.0 - 11/13 Normal MH The 18.0 [place] HEMATOLOGY WBC X 10x3 6.0 K/CMM 3.7 - 10.4 08/31 Normal /2012 [place] HEMATOLOGY RBC X 10x6 5.10 M/CMM 4.70 - 08/31 Normal The 6. [place] Chest 2 Chest 2 NAME: MIKY BOLTON 08/31 - The views views /2012 [facility] : 1950 SEX: M Ordering Physician: Leo Cevallos Read by: Vinayak Kaiser Dictated Date/time: 08/31/13 11:01 Electronically Signed by: Vinayak Kaiser MD 08/31/13 11:04 FINAL REPORT Chest 2 views : Aug 31, 2013 10:48:00 AM. CLINICAL INDICATION: 810.00. Comparison Examination: December 31, 2007. FINDINGS: The PA and lateral views of the chest show normal lung volumes without interstitial or airspace opacities, pleural effusions or pneumothorax. The heart size and pulmonary vasculature are normal. The trachea is midline. There is a mildly tortuous, calcified, atherosclerotic aorta. Right mid clavicle fracture is seen with 1.4 cm superior positi oning of the medial clavicle fracture fragment with 2.8 cm bayonet appositioning. Dedicated imaging of the right shoulder or clavicle should be performed for further assessment. Mild degenerative disc d isease changes and small degenerative osteophytes are seen throughout the thoracic spine. OPINION: 1. Right mid clavicle fracture, as noted above. 2. No infiltrates in the lungs. SL: 24 Vital Signs Vital Sign Value Date Comments Source Height 177.8 cm 08/31/2013 [facility] Weight 79.545 08/31/2013 [facility] Encounters Location Location Encounter Encounter Reason Attending ADM DC Status Source Details Type Number For Provider Date Date Visit The Outpatient [id number] 810.00LEO 08/31 08/31 Active [facility] V72.82 MARLINE GROVES /2012 [place] [facility] [id number] PATRICE 10/28 Active [facility] /2016 [place] Procedures Procedure Code Date Perfomer Comments Source
--- OUTSIDE RECORDS SUMMARY | 2019-03-15 09:16 | XMS REPORT | Continuity of Care Document ---
:1950 Author Organization [facility] Address [address] [place] [address] Phone Unavailable Care Team Providers Name Role Phone YUAN CORDERO MD Primary Care Physician Insurance Providers Guarantor Miky Bolton Address [address] [place] [address] Email [email or web address] Payer Medicare Policy Number [id number] Subscriber's Name Miky Bolton Relationship Self / Same As Patient Group Number NA Group Name NA Effective Date 15 Payer [place] [employer] [place] [employer] Claims Policy Number [id number] Subscriber's Name Miky Bolton Relationship Self / Same As Patient Group Number PLAN G Group Name NA Advance Directives Directive Response Recorded Date/Time Patient/Family Given Education Material R/T Y - 12/14/18...[place] 12/14/18 10: 14am Directives? 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 Torticollis Unknown Weakness of neck Unknown Surgical Problem Onset Date Status History of foot surgery Unknown Resolved Knee joint replacement by other means Unknown Resolved Status post insertion of percutaneous endoscopic gastrostomy Unknown (PEG) tube Past Problems Medical Problem Onset Date Status Aspiration pneumonia of right lung Unknown Acute Dislodged gastrostomy tube Unknown Acute Dyspnea Unknown Acute Gastrostomy tube obstruction Unknown Acute Hypoxemia Unknown Acute Pneumonia Unknown Acute Medications Current Home Medications Medication Dose Units Route Directions Days Qty Instructions Start Date Albuterol 1 Puff RESPIRATORY Rt-Every 4 (Ventolin Hfa (INHALATION) Hours As 90 Mcg/Act *) Needed 17 Gm Aers Aspirin 81 Mg INTRAGASTRIC Daily (Aspirin *) 81 Mg Chw Nutritional 4 Can INTRAGASTRIC Twice A Day [...] Tab Oral Daily Discontinued Atorvastatin Calcium (Lipitor *) 20 Mg Tab, 0.5 Daily Discontinued Tab Intragastric Atorvastatin Calcium 80 Mg Tab, 40 Mg Oral Once Daily Discontinued Azithromycin (Zithromax *) 250 Mg Tab, 250 Mg Daily Discontinued Oral Levofloxacin (Levaquin 500 Mg *) 500 Mg Tab, 1 Daily 09/19/16 Discontinued Tab Oral Metoprolol Succinate (Toprol Xl *) 25 Mg Tab, 25 Daily Discontinued Mg Oral Metoprolol Succinate (Toprol Xl *) 50 Mg Tab, 0.5 Daily Discontinued Tab Oral Metronidazole (Flagyl *) 500 Mg Tab, 500 Mg Oral Every 8 Hours 09/19/16 Discontinued Tamsulosin Hcl (Tamsulosin Hcl 0.4 Mg (Flomax) [...] Immunizations No immunization information available. Vital Signs Acute Vital Signs Vital Response Date/Time Blood Pressure 130/74 mm Hg 12/14/2018 10:58am Pulse Pulse Rate (adult) 58 beats per minute (60 - 100) 12/14/2018 10:58am Respiratory Rate 18 breaths per minute (10 - 24) 12/14/2018 10:58am Temperature Source Temporal Artery Scan 12/14/2018 10:58am Results Laboratory Results Test Name Result Units Flags Reference Collection Result Comments Date/Time Date/Time White Blood Count 6.9 K/ul 4.0-12.3 10/21/2018 10/21/2018 2:27pm 2:32pm Red Blood Count 4.91 M/ul 3.80-5.80 10/21/2018 10/21/2018 2:27pm 2:32pm Hemoglobin 14.7 g/dl 11.67-17.22 10/21/2018 10/21/2018 2:27pm 2:32pm Hematocrit 45.1 % 35.0-51.0 10/21/2018 10/21/2018 2:27pm 2:32pm Mean Corpuscular 91.8 fl 78-96 10/21/2018 10/21/2018 Volume 2:27pm 2:32pm Mean Corpuscular 30.0 pg 26.8-33.4 10/21/2018 10/21/2018 Hemoglobin 2:27pm 2:32pm Mean Corpuscular 32.6 g/dl 32.3-36.7 10/21/2018 10/21/2018 Hemoglobin Concent 2:27pm 2:32pm Red Cell 13.9 % 11.6-15.4 10/21/2018 10/21/2018 Distribution Width 2:27pm 2:32pm Platelet Count 173 K/ul 115-328 10/21/2018 10/21/2018 2:27pm 2:32pm Mean Platelet 8.7 fl 8.4-11.8 10/21/2018 10/21/2018 Volume 2:27pm 2:32pm Neutrophils (%) 77.7 % 44.7-82.4 10/21/2018 10/21/2018 (Auto) 2:27pm 2:32pm Lymphocytes (%) 8.2 % L 10.0-50.0 10/21/2018 10/21/2018 (Auto) 2:27pm 2:32pm Monocytes (%) 9.6 % 3.9-13.4 10/21/2018 10/21/2018 (Auto) 2:27pm 2:32pm Eosinophils (%) 3.0 % 0.0-6.43 10/21/2018 10/21/2018 (Auto) 2:27pm 2:32pm Basophils (%) 1.5 % H 0.0-0.72 10/21/2018 10/21/2018 (Auto) 2:27pm 2:32pm Random Glucose 104 mg/dL 82-115 10/21/2018 10/21/2018 2:27pm 2:44pm Blood Urea 23 mg/dL 8-23 10/21/2018 10/21/2018 Nitrogen 2:27pm 2:44pm Serum Osmolality 280 280-300 10/21/2018 10/21/2018 2:27pm 2:44pm Creatinine 0.6 mg/dL L 0.70-1.20 10/21/2018 10/21/2018 2:27pm 2:44pm Glomerular > 60.00 10/21/2018 10/21/2018 GFR RESULTS ARE REPORTED IN mL/min/1.73m2. Filtration Rate 2:27pm 2:44pm Calc Normal GFR: >60mL/min Moderately decreased GFR: 30-59 mL/min Severely decreased GFR: 15-29 mL/min Kidney Failure (or Dialysis): <15 mL/min The calculated eGFR is not valid for patients younger than 18 years or older than 75 years. BUN/Creatinine 38.3 H 12-20 10/21/2018 10/21/2018 Ratio 2:27pm 2:44pm Sodium Level 138 mmol/L 135-145 10/21/2018 10/21/2018 2:27pm 2:44pm Potassium Level 4.4 mmol/L 3.5-5.2 10/21/2018 10/21/2018 2:27pm 2:44pm Chloride Level 96 mmol/L L 98-108 10/21/2018 10/21/2018 2:27pm 2:44pm Carbon Dioxide 33 mmol/L H 21-32 10/21/2018 10/21/2018 Level 2:27pm 2:44pm Anion Gap 13.4 mEq/L 12-20 10/21/2018 10/21/2018 2:27pm 2:44pm Calcium Level 9.4 mg/dL 8.8-10.2 10/21/2018 10/21/2018 2:27pm 2:44pm Total Protein 7.3 g/dL 6.6-8.7 10/21/2018 10/21/2018 2:27pm 2:44pm Albumin 4.2 g/dL 3.5-5.2 10/21/2018 10/21/2018 2:27pm 2:44pm Globulin 3.1 gm/dL 10/21/2018 10/21/2018 2:27pm 2:44pm Albumin/Globulin 1.4 >1.0 10/21/2018 10/21/2018 Ratio 2:27pm 2:44pm Total Bilirubin 0.9 mg/dL 0.0-1.2 10/21/2018 10/21/2018 2:27pm 2:44pm Aspartate Amino 25 U/L 15-40 10/21/2018 10/21/2018 Transf (AST/SGOT) 2:27pm 2:44pm Alanine 15 U/L 0-41 10/21/2018 10/21/2018 Aminotransferase 2:27pm 2:44pm (ALT/SGPT) Total Alkaline 118 U/L 40-130 10/21/2018 10/21/2018 Phosphatase 2:27pm 2:44pm Procedures Procedure Status Date Provider(s) X-RAY EXAM CHEST 2 VIEWS Completed 10/21/18 COMPLETE CBC W/AUTO DIFF WBC Completed 10/21/18 ROUTINE VENIPUNCTURE Completed 10/21/18 COMPREHEN METABOLIC PANEL Completed 10/21/18 ORAL FUNCTION THERAPY Completed 11/23/18 CINE/VID X-RAY THROAT/ESOPH Completed 11/23/18 MOTION FLUOROSCOPY/SWALLOW Completed 11/23/18 SWALLOW CURRENT STATUS Completed 11/23/18 SWALLOW GOAL STATUS Completed 11/23/18 SWALLOW D/C STATUS Completed 11/23/18 ORAL FUNCTION THERAPY Completed 09/20/18 ORAL FUNCTION THERAPY Completed 09/20/18 PT EVAL MOD COMPLEX 30 MIN Completed 09/20/18 ORAL FUNCTION THERAPY Completed 09/20/18 THERAPEUTIC EXERCISES Completed 09/20/18 THERAPEUTIC EXERCISES Completed 09/20/18 MANUAL THERAPY 1/> REGIONS Completed 09/20/18 ORAL FUNCTION THERAPY Completed 09/20/18 MANUAL THERAPY 1/> REGIONS Completed 09/20/18 ORAL FUNCTION THERAPY Completed 09/20/18 THERAPEUTIC EXERCISES Completed 09/20/18 MANUAL THERAPY 1/> REGIONS Completed 09/20/18 ORAL FUNCTION THERAPY Completed 09/20/18 THERAPEUTIC EXERCISES Completed 09/20/18 [id number] Completed 09/20/18 BODY POSITION GOAL STATUS Completed 09/20/18 THERAPEUTIC EXERCISES Completed 10/20/18 MANUAL THERAPY 1/> REGIONS Completed 10/20/18 ORAL FUNCTION THERAPY Completed 10/20/18 THERAPEUTIC EXERCISES Completed 10/20/18 MANUAL THERAPY 1/> REGIONS Completed 10/20/18 ORAL FUNCTION THERAPY Completed 10/20/18 THERAPEUTIC EXERCISES Completed 10/20/18 MANUAL THERAPY 1/> REGIONS Completed 10/20/18 ORAL FUNCTION THERAPY Completed 10/20/18 THERAPEUTIC EXERCISES Completed 10/20/18 MANUAL THERAPY 1/> REGIONS Completed 10/20/18 ORAL FUNCTION THERAPY Completed 10/20/18 THERAPEUTIC EXERCISES Completed 10/20/18 MANUAL THERAPY 1/> REGIONS Completed 10/20/18 ORAL FUNCTION THERAPY Completed 10/20/18 THERAPEUTIC EXERCISES Completed 10/20/18 MANUAL THERAPY 1/> REGIONS Completed 10/20/18 ORAL FUNCTION THERAPY Completed 10/20/18 [id number] Completed 10/20/18 BODY POSITION GOAL STATUS Completed 10/20/18 Peg Tube Exchange-Minor Proc Completed 12/14/18 PALOMO HANDLEY DO X-ray of chest, two views Completed 10/21/18 YUAN CORDERO MD Video fluoroscopy of esophagus and hypopharynx Completed 11/23/18 YUAN CORDERO MD during swallowing with oral liquid and paste contrast Encounters Encounter Location Arrival/Admit Date Discharge/Depart Date Attending Provider Registered [place] 12/14/18 9:00am PALOMO HANDLEY DO Medical Ctr Discharged [place] 12/08/18 10:00am 12/16/18 11:59pm YUAN CORDERO MD Medical Ctr Registered [place] 11/23/18 10:27am YUAN CORDERO MD Medical Ctr Registered [place] 10/21/18 2:10pm YUAN CORDERO MD Medical Ctr Discharged [place] 10/20/18 5:25am 11/18/18 11:59pm YUAN CORDERO MD Medical Ctr Discharged [place] 09/20/18 8:42am 10/18/18 11:59pm YUAN CORDERO MD Medical Ctr
--- OUTSIDE RECORDS SUMMARY | 2019-03-15 09:16 | XMS REPORT | Continuity of Care Document ---
:1950 Author Organization [facility] Address [address] [place] [address] Phone Unavailable Care Team Providers Name Role Phone YUAN CORDERO MD Primary Care Physician Insurance Providers Guarantor Miky Bolton Address [address] [place] [address] Email [email or web address] Payer Medicare Policy Number [id number] Subscriber's Name Miky Bolton Relationship Self / Same As Patient Group Number NA Group Name NA Effective Date 15 [facility] Claims Policy Number [id number] Subscriber's Name Miky Bolton Alexander Relationship Self / Same As Patient Group Number PLAN G Group Name NA Advance Directives No advance directive information available. Problems Medical Problem Onset Date Status Acute [...] Vital Signs Vital Response Date/Time Blood Pressure 129/66 mm Hg 10/04/2018 11:03am Pulse Pulse Rate (adult) 72 beats per minute (60 - 100) 10/04/2018 11:03am Respiratory Rate 16 breaths per minute (10 - 24) 10/04/2018 11:03am Temperature Source Oral 10/04/2018 11:03am Results Laboratory Results Test Name Result Units [...] PANEL Completed 10/21/18 ORAL FUNCTION THERAPY Completed 09/20/18 ORAL FUNCTION [...] 09/20/18 BODY POSITION GOAL STATUS Completed 09/20/18 EMERGENCY DEPT VISIT Completed 10/04/18 X-ray of chest, two views Completed 10/21/18 YUAN CORDERO MD Encounters Encounter Location Arrival/Admit Date Discharge/Depart Date Attending Provider Discharged [place] 11/17/18 10:00am 11/18/18 11:59pm YUAN CORDERO MD Medical Ctr Registered [place] 10/21/18 2:10pm YUAN CORDERO MD Medical Ctr Departed [place] 10/04/18 7:31am 10/04/18 11:04am ELVIRA MEJIA MD [facility] Discharged [place] 09/20/18 8:42am 10/18/18 11:59pm YUAN CORDERO MD Medical Ctr
--- OUTSIDE RECORDS SUMMARY | 2019-03-15 09:16 | XMS REPORT | Continuity of Care Document ---
:1950 Author Organization [facility] Address [address] [place] [address] Phone Unavailable Care Team Providers Name Role Phone YUAN CORDERO MD Primary Care Physician Insurance Providers Guarantor Miky Bolton Address [address] [place] [place] [address] Email [email or web address] Payer Medicare Policy Number [id number] Subscriber's Name Miky Bolton Relationship Self / Same As Patient Group Number NA Group Name NA Effective Date 15 Payer [facility] Rosa Maria Walker Claims Policy Number [id number] Subscriber's Name Miky Bolton Relationship Self / Same As Patient Group Number PLAN G Group Name NA Advance Directives Directive Response Recorded Date/Time Patient/Family Given Education Material R/T Y - 10/04/18...[place] 10/04/18 10: 36am Directives? Chief Complaint and Reason for Visit Chief Complaint Abdominal/GI/Nausea/Vomiting Reason for Visit Dislodged gastrostomy tube Problems Medical Problem Onset Date Status Acute [...] Stop Date Never smoker Hospital Discharge Instructions No hospital discharge instruction information available. Plan of Care Discharge Date 10/04/18 11:04am Instructions/Education Provided Gastrostomy Tube Replacement Gastrostomy Tube Home Guide, Adult Forms Provided Portal Welcome Letter Prescriptions See Medication Section Referrals YUAN CORDERO MD Address: [address] [place] [address] Additional Instructions/Education CONTINUE CARE ADVISED BY YOUR REGULAR DOCTOR Functional Status No functional status information available. [...] 10/04/2018 11:03am Temperature Source Oral 10/04/2018 11:03am Height 5 ft 11 in 10/04/2018 7:41am Weight 160 lb 10/04/2018 7:41am Body Mass Index 22.3 kg/m^2 10/04/2018 7:41am Results No relevant diagnostic test, laboratory data and/or discharge summary information available. Procedures No procedure information available. Encounters Encounter Location Arrival/Admit Date Discharge/Depart Date Attending Provider Departed [place] 10/04/18 7:31am 10/04/18 11:04am ELVIRA MEJIA MD [facility] Registered [place] 09/27/18 10:00am YUAN CORDERO MD Medical Ctr Discharged [place] 08/25/18 11:00am 09/17/18 11:59pm YUAN CORDERO [facility] Recent Diagnosis
--- OUTSIDE RECORDS SUMMARY | 2019-03-15 09:16 | XMS REPORT | Continuity of Care Document ---
:1950 Author Organization [facility] Address [address] [place] [address] Phone Unavailable Care Team Providers Name Role Phone YUAN CORDERO MD Primary Care Physician Insurance Providers Guarantor Miky Bolton Address [address] [place] [address] Email [email or web address] Payer Medicare Policy Number [id number] Subscriber's Name Miky Bolton Relationship Self / Same As Patient Group Number NA Group Name NA Effective Date 15 Payer [facility] Rosa Maria Walker Claims Policy Number [id number] Subscriber's Name Miky Bolton Relationship Self / [...] Plan of Care Discharge Date 10/04/18 11:04am Disposition PATIENT DISCHARGE HOME OR SELF Instructions/Education Provided Gastrostomy Tube Replacement Gastrostomy Tube Home Guide, Adult Forms Provided Portal Welcome Letter Prescriptions See Medication Section Referrals YUAN CORDERO MD Address: [address] [place] [address] Additional Instructions/Education CONTINUE CARE ADVISED BY YOUR [...] information available. Procedures Procedure Status Date Provider(s) EMERGENCY DEPT VISIT Completed 10/04/18 Encounters Encounter Location Arrival/Admit Date Discharge/Depart Date Attending Provider Discharged [place] 10/18/18 10:00am 10/18/18 11:59pm YUAN CORDERO MD Medical Ctr Departed [place] 10/04/18 7:31am 10/04/18 11:04am ELVIRA MEJIA MD [facility] Discharged [place] 08/25/18 11:00am 09/17/18 11:59pm YUAN CORDERO MD Medical Ctr
--- OUTSIDE RECORDS SUMMARY | 2019-03-15 09:16 | XMS REPORT | Encounter Summary ---
:1950 Author Care Team Providers Name Role Phone Kimberlyn Ellison Primary Care Provider [phone] Reason for Visit Follow Up Visit Instructions 1. Impacted cerumen 2. Hearing loss 3. Tinnitus tympanogram 4. Otalgia 5. Dysphagia 6. Acid reflux 7. Adverse effect of radiation therapy 8. Otitis media Discussion Note: None recorded.Patient educational handouts: No information available. Plan of Care Patient Instructions Patient discharged with the following instructions per Dr. Bell Follow up 2 months If any other problem patient is to call the office Patient verbalized understanding the instructions given along with my office Reminders Provider Appointments Follow up Anastasia Bell, 02/25/2019 10:30AM Lab None recorded. Referral None recorded. Procedures None recorded. Surgeries None recorded. Imaging Tympanogram In-House Results 12/24/2018 Medications Name Start Date Aspir-Low 81 mg tablet,delayed release Take 1 tablet every day by oral route at bedtime. atorvastatin 10 mg tablet atorvastatin 20 mg tablet Ciprodex 0.3 %-0.1 % ear drops,suspension INSTILL 5-6 DROPS INTO LEFT EAR BY OTIC ROUTE 3 TIMES PER DAY FOR 7 DAYS agfuzgsu-uvbqenznr-xphexcwxr 3.5 mg-10,000 unit/mL-1 % ear drops,susp INSTILL 5 DROPS INTO AFFECTED EAR(S) BY OTIC ROUTE 3 TIMES PER DAY for 14 DAYS eelwfrlh-ulrxtvrvq-thuwyygxx 3.5 mg/mL-10,000 unit/mL-1 % ear solution ofloxacin 0.3 % ear drops INSTILL 5 DROPS (1.5 MG) INTO AFFECTED LEFT EAR BY OTIC ROUTE 3 TIMES PER DAY FOR 7 DAYS omeprazole 20 mg capsule,delayed release Otovel 0.3 %-0.025 % (0.25 mL) ear solution INSTILL 0.25 MILLILITER INTO AFFECTED EAR(S) BY OTIC ROUTE EVERY 12 HOURS FOR 7 DAYS pantoprazole 40 mg tablet,delayed release ranitidine 300 mg tablet tamsulosin 0.4 mg capsule Ventolin HFA 90 mcg/actuation aerosol inhaler Medications Administered None recorded. Vitals Height Weight BMI Blood Pressure 5 ft 10 in 165 lbs 23.7 kg/m2 108/74 mm[Hg] Lab Results None recorded. Allergies Code Code System Name Reaction Severity Status Onset NKDA Problems No Known Problems Procedures Date Name Performed by 01/05/2018 Upper Gastrointestinal Endoscopy, W/ Information not available Directed Placement of Percutaneous Gastrostomy Tube (Surg) 01/15/[address] Gastrostomy Tube Information not available Hernia Repair W/mesh Information not available Knee Arthroscopy/surgery Information not available 12/24/2018 Tympanogram In-House Results For Internal Use Only [address] Vaccine List None recorded. Social History Smoking Status Never Smoker Past Encounters 12/24/2018 Impacted Cerumen; Hearing Loss; Tinnitus; Otalgia; Dysphagia; Acid Reflux; Adverse Effect of Radiation Therapy; Otitis Media Anastasia Bell MD: [address] [place] [address], [address], [place] [address], Ph. History of Present Illness None recorded. Review of Systems ENT ROS Reported By: Patient ENMT: ENMT: ear pain, hearing loss, sore throat, hoarseness; impacted cerumen in both ears Physical Exam None recorded.
--- OUTSIDE RECORDS SUMMARY | 2019-03-15 09:17 | XMS REPORT | Encounter Summary ---
:1950 Author Care Team Providers Name Role Phone Kimberlyn NicoleCharitoCooper Primary Care Provider [phone] Reason for Visit Follow Up Visit Instructions 1. Impacted cerumen 2. Hearing loss 3. Tinnitus tympanogram 4. Otalgia 5. Dysphagia 6. Acid reflux 7. Adverse effect of radiation therapy 8. Otitis media Discussion Note: None recorded.Patient educational handouts: No information available. Plan of Care Patient Instructions Patient discharged with the following instructions per Dr. Bell Patient is to use Vinegar in both ears 2-3 times a week for 1 week Follow up 3 months If any other problem patient is to call the office Patient verbalized understanding the instructions given along with my office Reminders Provider Appointments Follow up Anastasia Bell 05/27/2019 11:00AM Lab None recorded. Referral None recorded. Procedures None recorded. Surgeries None recorded. Imaging Tympanogram In-House Results 02/25/2019 Medications Name Start Date atorvastatin 20 mg tablet lidocaine 2 % mucosal jelly omeprazole 20 mg capsule,delayed release pantoprazole 40 mg tablet,delayed release sucralfate tamsulosin 0.4 mg capsule Medications Administered None recorded. Vitals Height Weight BMI Blood Pressure 5 ft 10 in 169.1 lbs 24.3 kg/m2 100/66 mm[Hg] Lab Results Date Name Specimen Result Interpretation Description Value Range Status Address 02/25/2019 Tympanogram Right Type A In-House Normal Results: For Internal Use Only Left Type A In-House Normal Results: For Internal Use Only Allergies Code Code System Name Reaction Severity Status Onset NKDA Problems No Known Problems Procedures Date Name Performed by 01/05/2018 Upper Gastrointestinal Endoscopy, W/ Information not available Directed Placement of Percutaneous Gastrostomy Tube (Surg) 01/15/[address] Gastrost[address] Tube Information not available Hernia Repair W/mesh Information not available Knee Arthroscopy/surgery Information not available 02/25/2019 Tympanogram In-House Results For Internal Use Only [address] Vaccine List None recorded. Social History Smoking Status Never Smoker Past Encounters 02/25/2019 Impacted Cerumen; Hearing Loss; Tinnitus; Otalgia; Dysphagia; Acid Reflux; Adverse Effect of Radiation Therapy; Otitis Media Anastasia Bell MD: [address] [place] [address], [address], [place] [address], Ph. History of Present Illness None recorded. Review of Systems ENT ROS Reported By: Patient ENMT: ENMT: ear pain, hearing loss, sore throat, hoarseness; impacted cerumen in both ears Physical Exam None recorded.
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
[2019-03-15] MEDS ORDERED: PROPOFOL 200 MG/20 ML VIAL IV ONE (09:37)
[2019-03-15] MEDS ORDERED: FENTANYL CITR 100 MCG/2 ML ONE (09:37)
[2019-03-15] MEDS ORDERED: MIDAZOLAM HCL 2 MG/2 ML INJ ONE (09:38)
[2019-03-15] MEDS ORDERED: LIDOCAINE 1% MPF 5 ML VIAL ONE (09:38)
[2019-03-15] MEDS ORDERED: EPHEDRINE SULF 50 MG/ML VIAL ONE (10:18)
[2019-03-15] MEDS ORDERED: NS 0.9% VIAL 10 ML ONE (10:18)
[2019-03-15] MEDS ORDERED: KETOROLAC 30 MG/ML INJ ONE (10:35)
[2019-03-15] MEDS ORDERED: ONDANSETRON 4 MG/2 ML VIAL ONE (10:41)
[2019-03-15] MEDS ORDERED: ACETAMINOPHEN 160 MG/5 ML UCUP FT ONE (11:35)
[2019-03-15] MEDS ORDERED: ACETAMINOPHEN 160 MG/5 ML UCUP ONE (11:48)
[2019-03-15] MEDS ORDERED: NACL 0.9% IRR SOLN 2,000 ML IRR ONE (12:20)
== END 2019-03-15 12:20 | disposition home or self-care (01) ==
LOC: OR 08:55
PROVIDERS: ATTEND Urology
PROC: 0VT08ZZ Resection of Prostate, Via Natural or Artificial Opening Endoscopic (ICD-10-PCS; principal; 2019-03-15 10:00)
DX: N40.1 Benign prostatic hyperplasia with lower urinary tract symptoms (principal); R33.8 Other retention of urine; R39.12 Poor urinary stream; E11.9 Type 2 diabetes mellitus without complications; K21.9 Gastro-esophageal reflux disease without esophagitis; Z93.1 Gastrostomy status; Z85.828 Personal history of other malignant neoplasm of skin; Z01.818 Encounter for other preprocedural examination
CPT/HCPCS: 93005; 87088; 85025; 87086; 80048; 36415; 85610; 82962; 88305; 85730; 71046; 52601; J2704; J3010; J7030; J1580; J2405; 81003; 81015; J2250